=== PATIENT | female | born 1990 | race Caucasian/White ===

== ENCOUNTER 2024-05-04 04:15 | Observation (INO) | payer SELFPAY ==
[~2024-05-04] VITALS: Ht 167.6 cm; Wt 77.0 kg
[2024-05-04] VITALS (9 sets, daily range): BP systolic 131–186; BP diastolic 73–106
[2024-05-04] MEDS ORDERED: Pantoprazole Sodium 40 MG VIAL (Protonix) IV ONE (04:35)
[2024-05-04 04:53] LABS: BASO% 0.3 % (0-3); EOS% 2.1 % (0-8); HEMATOCRIT 40.2 % (37.0-47.0); HEMOGLOBIN 13.1 g/dl (12.0-16.0); LYMPH% 23.2 % (15-41); MEAN CELL VOLUME 93.3 fL CALC (80.0-100.0); MEAN CORPUSCULAR HGB 30.4 pG CALC (26.0-32.0); MEAN CORPUSCULAR HGB CONC 32.6 g/dL CAL (32.0-36.0); MONO% 11.7 % (2-13); NEUT# 4.75 thou/uL (2.00-7.15); NEUT% 61.7 % (42-76); RED BLOOD COUNT 4.31 mill/uL (4.20-5.60); RED CELL DISTRI WIDTH 11.7 % (11.5-15.5)
[2024-05-04 05:05] LABS: ALBUMIN 4.4 g/dL (3.2-5.0); ALKALINE PHOSPHATASE 80 u/l (38-126); ANION GAP 12 (6-22 (CALC)); BILIRUBIN, TOTAL 0.4 mg/dL (0.02-1.3); BUN 12 mg/dL (7-17); BUN/CREATININE RATIO 16 (12-20 (CALC)); CARBON DIOXIDE 25 mmol/l (22-30); CHLORIDE 104 mmol/l (95-108); CREATININE 0.8 mg/dL (0.5-1.0); ESTIMATED GFR 100 ML/MIN (>=90 (CALC)); LIPASE 81 u/l (23-300); POTASSIUM 3.7 mmol/l (3.5-5.1); SGOT/AST 33 u/l (14-36); SODIUM 137 mmol/l (137-146); TOTAL PROTEIN 7.4 g/dL (6.3-8.2)
[2024-05-04] MEDS ORDERED: MORPHINE SULFATE 4 MG/ML VIAL IV ONE (05:45)
[2024-05-04] MEDS ORDERED: ONDANSETRON HCl 4 MG/2 ML SDV IV ONE ×2 (05:45→11:43)
[2024-05-04 05:46] LABS: URINE BILIRUBIN - DIPSTICK Negative (NEGATIVE); URINE BLOOD DIPSTICK Trace-lysed (NEGATIVE); URINE GLUCOSE - DIPSTICK Negative (NEGATIVE); URINE KETONE Negative (NEGATIVE); URINE LEUK ESTERASE Negative (NEGATIVE); URINE NITRITE - DIPSTICK Negative (Negative); URINE PROTEIN - DIPSTICK Negative (NEG-TRACE); URINE UROBILINOGEN - DIPSTICK 0.2 E.U./dL (0.2)
[2024-05-04 05:48] LABS: URINE COLOR Yellow
[2024-05-04] MEDS ORDERED: LOSARTAN POTASS50 MG PO (06:10)
[2024-05-04] MEDS ORDERED: SODIUM CHLORIDE 0.9% 1,000 ML IV PRN (06:15)
[2024-05-04] MEDS ORDERED: MORPHINE SULFATE 4 MG/ML VIAL IV PRN (06:15)
[2024-05-04] MEDS ORDERED: ONDANSETRON HCl 4 MG/2 ML SDV IV SCH (06:30)
[2024-05-04] MEDS ORDERED: PIPERACILLIN Sodium-Tazobactam 3.375 GM in SODIUM CHLORIDE 0.9% 100 ML IV ONE (06:50)
[2024-05-04] MEDS ORDERED: SODIUM CHLORIDE 0.9% 1,000 ML IV ONE (09:36)
[2024-05-04] MEDS ORDERED: LIDOcaine HCl 1% (Local Anesth.) 20 ML VIAL ONE (10:17)
[2024-05-04] MEDS ORDERED: ISOVUE-300 (Iopamidol) 100 ML SDV IV ONE (10:18)
[2024-05-04] MEDS ORDERED: GLUCAGON HCL (Rdna) 1 MG VIAL ONE (10:18)
[2024-05-04] MEDS ORDERED: ceFAZolin Sodium 2 GM/VIAL SDV ONE (11:00)
[2024-05-04] MEDS ORDERED: SODIUM CHLORIDE 0.9% 100 ML IV ONE (11:01)
[2024-05-04] MEDS ORDERED: PROPOFOL 200 MG/20 ML VIAL IV ONE (11:43)
[2024-05-04] MEDS ORDERED: ACETAMINOPHEN 1,000 MG/100 ML VIAL IV ONE (11:43)
[2024-05-04] MEDS ORDERED: SODIUM CHLORIDE 500 ML BTL IR ONE (11:43)
[2024-05-04] MEDS ORDERED: SUGAMMADEX SODIUM 200 MG/2 ML SDV IV ONE (11:43)
[2024-05-04] MEDS ORDERED: ROCURONIUM BROMIDE 10 MG/ML 5 ML VIAL IV ONE (11:43)
[2024-05-04] MEDS ORDERED: SUCCINYLCHOLINE CHLORIDE 20 MG/ML 10ML VIAL IV ONE (11:43)
[2024-05-04] MEDS ORDERED: LIDOCAINE HCL 2% 2ML SDV IV ONE (11:43)
[2024-05-04] MEDS ORDERED: KETOROLAC TROMETHAMINE 30 MG/ML SDV IV ONE (11:43)
[2024-05-04] MEDS ORDERED: SODIUM CHLORIDE 0.9% 1,000 ML BAG IV ONE (11:43)
[2024-05-04] MEDS ORDERED: PERCOCET 5/325M1 TAB PO (11:58)
[2024-05-04] MEDS ORDERED: PIPERACILLIN Sodium-Tazobactam 3.375 GM in SODIUM CHLORIDE 0.9% 100 ML IV SCH (12:00)
[2024-05-04] MEDS ORDERED: HYDROmorphone HCL 2 MG/AMP ONE (12:11)
== END 2024-05-04 13:02 | disposition home or self-care (01) | DRG 419 ==
LOC: ED 04:15 → ED-I 05:55 → ED 05:55 → ED-I 06:15 → ED 10:15 → ED-I 10:15 → ED 10:15 → ED-I 13:00
PROVIDERS: Family Medicine; ADMIT Surgery; ATTEND Surgery
PROC: 0FT44ZZ Resection of Gallbladder, Percutaneous Endoscopic Approach (ICD-10-PCS; principal; 2024-05-04)
DX: K80.12 Calculus of gallbladder with acute and chronic cholecystitis without obstruction (principal); I10 Essential (primary) hypertension
CPT/HCPCS: J0131; J0690; J1100; J1171; J1610; J2405; J2470; J2543; Q9966